=== PATIENT | male | born 1975 | race Caucasian/White ===

== ENCOUNTER 2018-09-11 03:17 | Emergency (ER) | payer MEDICAID ==
[~2018-09-11] VITALS: Wt 103.6 kg
[2018-09-11] MEDS ORDERED: morphine 4 MG/ML VIAL IV STA (04:39)
[2018-09-11] MEDS ORDERED: ONDANSETRON 4 MG INJ IV STA (04:39)
[2018-09-11] MEDS ORDERED: SOD CHLORIDE 0.9% 500 ML IV STA (04:39)
--- NOTE | 2018-09-11 05:46 | ERD ---
ER Documentation Chief Complaint Chief Complaint AP/CP X'S 8 HOURS HPI This is a 42-year-old male comes in with epigastric abdominal pain that radiated up to his chest for the past 8 hours. Denies fevers or chills. Denies any nausea vomiting. Pain is mild to moderate intensity with no exacerbating relieving factors. Pain was mild to moderate with radiation epigastric the chest. Denies shortness of breath or diaphoresis. Denies any other current issues. ROS All systems reviewed and are negative except as per history of present illness. PMhx/Soc Medical and Surgical Hx: pt denies Medical Hx, pt denies Surgical Hx History of Surgery: No Anesthesia Reaction: No Hx Neurological Disorder: No Hx Respiratory Disorders: No Hx Cardiac Disorders: No Hx Psychiatric Problems: No Hx Miscellaneous Medical Probl: No Hx Alcohol Use: Yes (DRINKS EVERY WEEK) Hx Substance Use: No Hx Tobacco Use: No Smoking Status: Never smoker Physical Exam Vitals Vital Signs Date Temp Pulse Resp B/P (MAP) Pulse Ox O2 O2 Flow FiO2 Time Delivery Rate 09/11/18 97.8 68 18 155/93 97 03:20 (113) Physical Exam Const: No acute distress Head: Atraumatic Eyes: Normal Conjunctiva ENT: Normal External Ears, Nose and Mouth. Neck: Full range of motion. No meningismus. Resp: Clear to auscultation bilaterally Cardio: Regular rate and rhythm, no murmurs Abd: Soft, non tender, non distended. Normal bowel sounds Skin: No petechiae or rashes Back: No midline or flank tenderness Ext: No cyanosis, or edema Neur: Awake and alert Psych: Normal Mood and Affect Result Diagram: 09/11/18 0356 09/11/18 0356 Results 24 hrs Laboratory Tests Test 09/11/18 03:56 White Blood Count 10.9 10^3/ul Red Blood Count 5.34 10^6/ul Hemoglobin 16.3 g/dl Hematocrit 47.8 % Mean Corpuscular Volume 89.5 fl Mean Corpuscular Hemoglobin 30.5 pg Mean Corpuscular Hemoglobin Concent 34.1 g/dl Red Cell Distribution Width 12.7 % Platelet Count 170 10^3/UL Mean Platelet Volume 12.4 fl Immature Granulocytes % 0.200 % Neutrophils % 78.2 % Lymphocytes % 14.8 % Monocytes % 5.6 % Eosinophils % 0.6 % Basophils % 0.6 % Nucleated Red Blood Cells % 0.0 /100WBC Immature Granulocytes # 0.020 10^3/ul Neutrophils # 8.5 10^3/ul Lymphocytes # 1.6 10^3/ul Monocytes # 0.6 10^3/ul Eosinophils # 0.1 10^3/ul Basophils # 0.1 10^3/ul Nucleated Red Blood Cells # 0.0 10^3/ul Urine Color YELLOW Urine Clarity CLEAR Urine pH 6.0 Urine Specific [place] 1.020 Urine Ketones TRACE mg/dL Urine Nitrite NEGATIVE mg/dL Urine Bilirubin NEGATIVE mg/dL Urine Urobilinogen NEGATIVE mg/dL Urine Leukocyte Esterase NEGATIVE Leticia/ul Urine Microscopic RBC 13 /HPF Urine Microscopic WBC 0 /HPF Urine Hemoglobin 2+ mg/dL Urine Glucose NEGATIVE mg/dL Urine Total Protein NEGATIVE mg/dl Sodium Level 142 mmol/L Potassium Level 4.0 mmol/L Chloride Level 104 mmol/L Carbon Dioxide Level 28 mmol/L Anion Gap 10 Blood Urea Nitrogen 16 mg/dl Creatinine 0.88 mg/dl Est Glomerular Filtrat Rate mL/min > 60 mL/min Glucose Level 134 mg/dl Calcium Level 9.6 mg/dl Total Bilirubin 0.3 mg/dl Direct Bilirubin 0.00 mg/dl Indirect Bilirubin 0.3 mg/dl Aspartate Amino Transf (AST/SGOT) 31 IU/L Alanine Aminotransferase (ALT/SGPT) 31 IU/L Alkaline Phosphatase 126 IU/L Total Protein 8.2 g/dl Albumin 4.8 g/dl Globulin 3.40 g/dl Albumin/Globulin Ratio 1.41 Lipase 197 U/L Current Medications Medications Dose Sig/Sonali Start Time Status Last (Trade) Ordered Route PRN Stop Time Admin Dose Reason Admin Sodium 500 ml @ Q1H STAT 09/11/18 DC Chloride 500 mls/hr IV 04:39 09/11/18 05:38 Morphine 4 mg ONCE STAT 09/11/18 DC Sulfate IV 04:39 (morphine) 09/11/18 04:41 Ondansetron 4 mg ONCE STAT 09/11/18 DC HCl (Zofran IV 04:39 Inj) 09/11/18 04:41 Procedures/MDM EKG: Rate/Rhythm: [Normal Sinus Rhythm] QRS, ST, T-waves: [No changes consistent w/ acute ischemia] Impression: [No evidence of ischemia or arrhythmia] Chest X-ray 1V Interpreted by me: Soft Tissue: No acute abnorma lities Bones: No acute abnormalities Mediastinum/Cardiac Silhouette/Lungs: [No acute abnormalities] Medical decision making: This patient comes with epigastric abdominal pain likely gastric in nature. At this point pending CT scan. Low suspicion for ACS given negative cardiac history, negative family history, no risk factors. If CT negative, patient will be discharged home for 8-hour follow-up and told to follow-up in 8 hours strictly here in the emergency department and return sooner via 9 1 for any chest pain nausea vomiting fevers chills. Patient has evidence of cholelithiasis on CAT scan. Patient will be discharged home. Patient's gastrointestinal symptoms have stabilized while in the department. No evidence of severe dehydration, sepsis, or surgical abdomen. Extensive discussion with family and patient that occult disease cannot be ruled out. 8 hour recheck for repeat abdominal exam is planned. Departure Diagnosis: Primary Impression: Abdominal pain Abdominal location: epigastric Qualified Codes: R10.13 - Epigastric pain Condition: Stable BRYANNA WOMACK Sep 11, 2018 05:46
[2018-09-11] MEDS ORDERED: TRAM50TA2 PO (05:50)
[2018-09-11] MEDS ORDERED: ONDA4TAB14 PO (05:50)
[2018-09-11 06:56] VITALS: BP 117/59; PULSE 68; RESP 17
== END 2018-09-11 07:10 | disposition home or self-care (01) ==
LOC: E/R 03:17
DX: R10.13 Epigastric pain (principal)
CPT/HCPCS: 71045; 74176; 80053; 81001; 83690; 84484; 85025; 96374; 96375; J2270; J2405; J7040; Z7502; Z7610